=== PATIENT | male | born 1985 | race Caucasian/White ===

== ENCOUNTER → 2022-03-19 12:15 | Outpatient (CLI) | payer OTHER, SELFPAY ==
--- NOTE | 2022-03-19 | DI.RAD.S_ITS ---
PROCEDURE: FL SHOULDER INJECTION MR/CT LT INDICATIONS: PAIN IN LEFT SHOULDER COMPARISON: None. TECHNIQUE: The indications, alternatives, benefits, risks, and complications of the procedure were explained to the patient. Written informed consent was obtained and placed in the chart. The shoulder was examined fluoroscopically and a site for needle placement chosen for entry into the glenohumeral joint from an anterior approach. The skin was prepped and draped in a sterile fashion, and 1% lidocaine infiltrated from skin down to joint capsule. A spinal needle was inserted into the glenohumeral joint, and a small amount of iodinated contrast media injected to confirm intra-articular placement of the needle tip. This was followed by approximately 12 mL dilute solution of a gadolinium containing MR contrast agent. The needle was removed and a dressing was applied. The patient was given postprocedural instructions and sent to the MR suite for MR imaging. FINDINGS: A single fluoroscopic spot image demonstrates intra-articular location of injected iodinated contrast. IMPRESSION: Successful fluoroscopically guided administration of dilute Gadolinium solution into the shoulder joint for MR arthrogram. Dictated by: Isak Mitchell M.D. on 03/19/2022 at 14:44 Approved by: Isak Mitchell M.D. on 03/19/2022 at 14:44
--- NOTE | 2022-03-19 | DI.RAD.S_ITS ---
PROCEDURE: XR EYE FOREIGN BODY RT INDICATIONS: MRI SCREEN TECHNIQUE: A single view of the orbits was acquired. COMPARISON: None. FINDINGS: Soft tissues: There is a metallic foreign body projecting over right orbital roof. No other foreign body is seen. Bones: Bony structures appear unremarkable. Visualized sinuses appear clear. IMPRESSION: Metallic foreign body seen within soft tissue over right orbital roof. Dictated by: Isak Mitchell M.D. on 03/19/2022 at 13:33 Approved by: Isak Mitchell M.D. on 03/19/2022 at 13:50
--- NOTE | 2022-03-19 | DI.CT.S_ITS ---
PROCEDURE: CT UE LT W CON INDICATIONS: LEFT SHOULDER PAIN POST ARTHROGRAM TECHNIQUE: After the intra-articular administration of 12 mL of dilute non-ionic contrast, 1-1.5 mm thick sections acquired from the acromioclavicular joint to the inferior scapula, with coronal and sagittal reformatting. COMPARISON: None. FINDINGS: Image quality: Excellent. Bones: There is mild acromioclavicular joint osteoarthritis with joint space narrowing, subchondral sclerosis and small inferior marginal osteophyte formation depressing the musculotendinous junction of supraspinatus. Mild glenohumeral joint osteoarthritic changes also likely present with joint space narrowing and subchondral sclerosis. No fracture or dislocation. No suspicious bony lesion. Visualized left upper ribs are intact. Soft tissues: There is no full-thickness rotator cuff tendon rupture. No contrast is seen extending to subacromial subdeltoid bursa. No significant muscle atrophy is seen on sagittal images. No abnormal soft tissue calcifications. No gross intra-articular loose bodies. Limited evaluation of shoulder labrum shows no definite area of abnormal contrast extension to suggest focal labral tear. Proximal intra-articular portion of long head of biceps tendon is grossly intact. IMPRESSION: 1. 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 No fracture or dislocation. No suspicious intraosseous lesion. 2. No full-thickness rotator cuff tendon rupture. Low-grade articular surface partial-thickness tear involving distal supraspinatus near its insertion on the humeral head is suspected. No abnormal soft tissue calcifications. No muscle atrophy. 3. No definite focal labral tear is seen. Dictated by: Isak Mitchell M.D. on 03/19/2022 at 14:29 Approved by: Isak Mitchell M.D. on 03/19/2022 at 14:33
== END ==
PROVIDERS: Referring Provider Student in an Organized Health Care Education/Training Program; Visit Provider Student in an Organized Health Care Education/Training Program
DX: M19.012 Primary osteoarthritis, left shoulder (principal); M25.512 Pain in left shoulder; Z13.5 Encounter for screening for eye and ear disorders; H05.51 Retained (old) foreign body following penetrating wound of right orbit; Z18.10 Retained metal fragments, unspecified
CPT/HCPCS: 23350; 70030; 73201

== ENCOUNTER 2023-02-02 20:00 | Emergency (ER) | payer OTHER, SELFPAY ==
[2023-02-02 20:14] VITALS: BP 139/74; PULSE 83; RESP 16; TEMP 37; O2SAT 98; BMI 32.5
[2023-02-02 21:28] VITALS: BP 131/75; PULSE 71
--- NOTE | 2023-02-02 22:36 | ED.NAVMDI ---
HPI - Nausea/Vomiting/Diarrhea General Chief complaint: Nausea/Vomiting/Diarrhea Stated complaint: nausea,diarrhea/body aches Time Seen by Provider: 02/02/23 22:36 Source: patient Mode of arrival: Ambulatory History of Present Illness HPI Narrative: 38-year-old gentleman with no significant medical history presents with persistent nausea and vomiting. Symptoms started on the with body aches by he was having significant nausea without fevers. No actual emesis. Diarrhea started evening and was significant for 2 days. He is had continued nausea, loss of appetite felt that the body aches were perhaps improving this morning but again is noticing some more achiness. Throughout all of this he has not had dysuria. He is noted that his hemorrhoids have flared up after the diarrhea episode. He is dizzy when he stands up and describes a low-grade headache. His made him come in this evening when he again began having increasing nausea and body aches. Related Data Allergies Allergy/AdvReac Type Severity Reaction Status Date / Time No Known Drug Allergies Allergy Verified 02/02/23 20:18 Review of Systems Review of Systems Narrative: Pertinent positive and negative findings as per HPI Patient History Social History Smoking Status: Never smoker Smoking Status: Never smoker Substance Use Type: does not use Exam Initial Vital Signs Initial Vital Signs: Vital Signs Temperature 98.6 F 02/02/23 20:14 Pulse Rate 83 02/02/23 20:14 Respiratory Rate 16 02/02/23 20:14 Blood Pressure 139/74 02/02/23 20:14 Pulse Oximetry 98 02/02/23 20:14 Oxygen Delivery Method Room Air 02/02/23 20:14 General: Appear somewhat fatigued but in no acute distress. Able to give a complete and coherent history. Well-nourished well-developed HEENT: Moist mucous membranes, minimally injected sclera with reactive pupils, Neck: No cervical adenopathy, supple Respiratory: Lungs are clear to auscultation, no wheezing no rales no rhonchi. Full and symmetrical air movement Cardiac: Regular rate and rhythm no murmurs no bruits Abdomen: Soft, nontender, good bowel tones, no flank pain Skin: Warm and dry, no rashes Neurologic: Grossly neurologically intact with no obvious asymmetries or abnormalities Extremities: No trauma, well perfused Psych: Cooperative, appropriate insight and affect Course Orders Ordered: ED Orders 02/02/23 22:57 Complete Blood Count AUTO DIFF Stat Comprehensive Metabolic Panel Stat Magnesium Stat Discontinued Medications Sodium Chloride (Normal Saline 0.9%) 1,000 mls @ 1,000 mls/hr IV BOLUS ONE Stop: 02/02/23 23:44 Last Infusion: 02/02/23 23:42 Dose: 0 mls/hr Documented By: Admin: 02/02/23 22:54 Dose: 1,000 mls/hr Documented By: Ketorolac Tromethamine (Ketorolac 30 Mg/Ml Vial) 15 mg IV NOW ONE Stop: 02/02/23 22:46 Last Admin: 02/02/23 22:54 Dose: 15 mg Documented By: Ondansetron HCl (Ondansetron 4 Mg/2 Ml Inj) 4 mg IV NOW ONE Stop: 02/02/23 22:46 Last Admin: 02/02/23 22:55 Dose: 4 mg Documented By: Vital Signs Vital signs: Vital Signs - 8 hr 02/02/23 20:14 02/02/23 21:28 02/02/23 22:57 Temperature 98.6 F Pulse Rate 83 71 68 Respiratory Rate 16 Blood Pressure 139/74 131/75 Pulse Oximetry 98 97 Oxygen Delivery Method Room Air 02/02/23 22:58 02/02/23 22:58 02/02/23 23:00 Temperature Pulse Rate 65 Respiratory Rate Blood Pressure 124/80 119/76 Pulse Oximetry 96 Oxygen Delivery Method 02/02/23 23:00 02/02/23 23:30 02/02/23 23:30 Temperature Pulse Rate 64 64 Respiratory Rate Blood Pressure 127/65 Pulse Oximetry 96 96 Oxygen Delivery Method MDM - Nausea/Vomiting/Diarrhea Lab Data 02/02/23 22:57 02/02/23 22:57 Labs: Lab Results 02/02/23 02/02/23 Range/Units 22:57 22:57 WBC 5.9 (4.5-11.0) X10^3/uL RBC 5.04 (4.5-5.9) X10^6/uL Hgb 14.8 (13.5-17.5) g/dL Hct 43.9 (41-53) % MCV 87.1 (80-100) fL MCH 29.3 (26-34) PG MCHC 33.7 (30-36) % RDW 13.8 (11.6-14.8) % Plt Count 193 (150-400) X10^3/uL Neut % (Auto) 46.4 L (50-75) % Lymph % (Auto) 31.3 (25-40) % Richardson % (Auto) 17.6 H (3-14) % Eos % (Auto) 4.1 H (2-4) % Baso % (Auto) 0.6 (0-2) % Neut # (Auto) 2800 (1177-4451) /uL Lymph # (Auto) 1900 (9801-2497) /uL Richardson # (Auto) 1000 H (0-900) /uL Eos # (Auto) 200 (0-450) /uL Baso # (Auto) 0 (0-100) /uL Sodium 134 L (137-145) mmol/L Potassium 4.0 (3.4-5.1) mmol/L Chloride 101 (98-107) mmol/L Carbon Dioxide 26 (22-32) mmol/L BUN 8 L (9-20) mg/dL Creatinine 0.83 (0.66-1.25) mg/dL Estimated GFR > 60 (>60) mL/min BUN/Creatinine Ratio 9.6 (6-22) Glucose 97 (70-100) mg/dL Calcium 8.5 (8.4-10.2) mg/dL Magnesium 2.1 (1.6-2.3) mg/dL Total Bilirubin 0.4 (0.2-1.3) mg/dL AST 63 H (17-59) IU/L ALT 101 H (<50) IU/L Alkaline Phosphatase 80 (38-126) U/L Total Protein 6.5 (6.3-8.2) g/dL Albumin 3.7 (3.5-5.0) g/dL Globulin 2.8 (1.7-4.1) g/dL Albumin/Globulin Ratio 1.3 (1.0-2.8) MDM Narrative Medical decision making narrative: CC: Persistent body aches, nausea and diarrhea Data collected from: patient, Differential considered: Gastroenteritis, other viral syndrome, acute renal or electrolyte abnormalities after the diarrhea Exam documented above, pertinent findings include: Appears to feel mildly unwell but no acute abnormalities on physical exam Lab Test results independently reviewed as above. Pertinent findings: CBC is unremarkable Chemistries are essentially reassuring with minimal elevation of AST and ALT Treatments: IV fluids and Zofran, parenteral Toradol Discussion: On re-evaluation, patient is feeling significantly better with parenteral rehydration and medications. Normal labs are reviewed with him. I suspect that this is and was resolving viral gastroenteritis. There is no evidence for acute appendicitis bowel obstruction acute renal failure acute electrolyte abnormalities or alternate reasons that would require surgical consultation additional imaging or hospitalization. All findings reviewed with patient and he will be discharged home. Will send him home with some Zofran should he have any recurrent nausea. Discharge Plan Departure Patient Disposition: Home Clinical Impression: Gastroenteritis, Dehydration, Vomiting and diarrhea Instructions: DI for Viral Gastroenteritis -- Adult Activity Restrictions/Additional Instructions: Thank you for coming in Your lab work was quite reassuring. There is no evidence of overwhelming infection, kidney failure, liver failure or significant electrolyte abnormalities. You certainly seem to look better after receiving a L of IV fluid, IV Toradol and IV Zofran to help with the nausea. I am going to send you home with a couple tablets of Zofran if the nausea should recur. If you find that you are getting worse or develop any new symptoms, please feel free to return to the emergency department for further evaluation. Stand Alone Forms: Patient Portal/API
[2023-02-02] MEDS: SODIUM CHLORIDE 0.9% 1,000 ML 1000 ML IV (22:54)
[2023-02-02] MEDS: KETOROLAC 30 MG/ML VIAL 15 MG IV (22:54)
[2023-02-02] MEDS: ONDANSETRON 4 MG/2 ML INJ IV (22:55)
[2023-02-02 22:57] VITALS: PULSE 68; O2SAT 97
[2023-02-02 22:58] VITALS: BP 124/80; PULSE 65; O2SAT 96
[2023-02-02 23:00] VITALS: BP 119/76; PULSE 64; O2SAT 96
[2023-02-02 23:05] LABS: Add Manual Diff / Slide Review NO; Basophils Absolute Auto 0 /uL (0-100); Basophils Percent Auto 0.6 % (0-2); Eosinophils Absolute Auto 200 /uL (0-450); Eosinophils Percent Auto 4.1 % (2-4); Hematocrit 43.9 % (41-53); Hemoglobin 14.8 g/dL (13.5-17.5); Lymphocytes Absolute Auto 1900 /uL (1100-4500); Lymphocytes Percent Auto 31.3 % (25-40); Mean Corpuscular HGB Conc 33.7 % (30-36); Mean Corpuscular Hemoglobin 29.3 PG (26-34); Mean Corpuscular Volume 87.1 fL (80-100); Monocytes Absolute Auto 1000 /uL (0-900); Monocytes Percent Auto 17.6 % (3-14); Neutrophils Absolute Auto 2800 /uL (1500-7000); Neutrophils Percent Auto 46.4 % (50-75); Platelet Count 193 X10^3/uL (150-400); Red Blood Cell Count 5.04 X10^6/uL (4.5-5.9); Red Cell Distribution Width 13.8 % (11.6-14.8); White Blood Cell Count 5.9 X10^3/uL (4.5-11.0)
[2023-02-02 23:17] LABS: Alanine Aminotransferase 101 IU/L (<50); Albumin 3.7 g/dL (3.5-5.0); Albumin Globulin Ratio 1.3 (1.0-2.8); Alkaline Phosphatase 80 U/L (38-126); Aspartate Aminotransferase 63 IU/L (17-59); BUN Creatinine Ratio 9.6 (6-22); Bilirubin Total 0.4 mg/dL (0.2-1.3); Blood Urea Nitrogen 8 mg/dL (9-20); Calcium 8.5 mg/dL (8.4-10.2); Carbon Dioxide 26 mmol/L (22-32); Chloride 101 mmol/L (98-107); Estimated Glomerular Filt Rate > 60 mL/min (>60); Globulin 2.8 g/dL (1.7-4.1); Glucose 97 mg/dL (70-100); HEMOLYSIS 17 (0-50); Magnesium 2.1 mg/dL (1.6-2.3); Sodium 134 mmol/L (137-145); Total Protein 6.5 g/dL (6.3-8.2)
[2023-02-02 23:30] VITALS: BP 127/65; PULSE 64; O2SAT 96
[2023-02-03] VITALS: BP 127/75; PULSE 69; O2SAT 96
[2023-02-03 00:30] VITALS: BP 121/63; PULSE 69; O2SAT 96
[2023-02-03] MEDS: ONDANSETRON 4 MG ODT PREPACK 1 BOTTLE MISC (01:01)
== END 2023-02-03 01:02 | disposition home or self-care (01) ==
PROVIDERS: Emergency Provider Emergency Medicine
DX: K52.9 Noninfective gastroenteritis and colitis, unspecified (principal); E86.0 Dehydration; R11.2 Nausea with vomiting, unspecified
CPT/HCPCS: 36415; 80053; 83735; 85025; 96361; 96374; 96375; 99284; J1885; J2405

== ENCOUNTER 2024-07-04 16:29 | Emergency (ER) | payer OTHER, SELFPAY ==
[2024-07-04 16:42] VITALS: BP 157/88; PULSE 78; RESP 18; TEMP 36.7; O2SAT 98; BMI 33.2
--- NOTE | 2024-07-04 16:46 | DI.RAD.S_ITS ---
PROCEDURE: XR CHEST 2V INDICATIONS: suspected PNA TECHNIQUE: 2 views of the chest were acquired. COMPARISON: None. FINDINGS: Surgical changes and devices: None. Lungs and pleura: An incomplete inspiratory result is noted, causing a crowded appearance to the lung markings. No focal infiltrates are seen. No pneumothorax or significant pleural effusions are seen. Mediastinum: Mediastinal contours are normal. Heart size is normal. Bones and chest wall: No suspicious bony abnormalities. Soft tissues appear unremarkable. IMPRESSION: Low lung volumes, without an acute abnormality seen by plain film. No focal infiltrates are seen. Dictated by: Anderson Jc M.D. on 07/04/2024 at 16:19 Approved by: Anderson Jc M.D. on 07/04/2024 at 16:20
[2024-07-04 17:29] LABS: COVID-19 CEPHEID 4-PLEX PCR Negative (Negative); Influenza A - CEPHEID Flu A POSITIVE (NEGATIVE); Influenza B - CEPHEID Flu B NEGATIVE (NEGATIVE); Respiratory Syncytial Virus Negative (Negative)
[2024-07-04 21:30] VITALS: O2SAT 98
[2024-07-04 21:31] VITALS: BP 164/83; PULSE 77; O2SAT 98
--- NOTE | 2024-07-04 21:59 | ED.GENADULT ---
HPI - General Adult General Chief complaint: Shortness of Breath/Dyspnea Stated complaint: thinks he has pneumonia Time Seen by Provider: 07/04/24 21:46 Source: patient Mode of arrival: Ambulatory History of Present Illness HPI narrative: 39-year-old male with 2-1/2 days of dry cough, muscle aches, no chronic lung disease, no history of asthma. No recent antibiotics. No known exposure close contacts to anyone known to have recent diagnosis COVID or influenza. Denies nausea or vomiting. Denies diarrhea. Denies pain chest abdomen and pelvis. Concerned that he might have pneumonia. Related Data Previous Rx's Medication Instructions Recorded benzonatate 200 mg capsule 200 mg PO BID-TID PRN cough #20 07/04/24 caps oseltamivir 75 mg capsule (Tamiflu) 75 mg PO BID 5 days #10 caps 07/04/24 Allergies Allergy/AdvReac Type Severity Reaction Status Date / Time No Known Drug Allergies Allergy Verified 02/02/23 20:18 Patient History Social History Smoking Status: Never smoker Smoking Status: Never smoker Exam Narrative Exam Narrative: GENERAL: Well-developed patient, in mild distress. HEAD: Atraumatic. Normocephalic. EYES: Pupils equal round and reactive. Extraocular motions intact. No scleral icterus. No injection or drainage. ENT: Nose without bleeding, purulent drainage. Throat without erythema, tonsillar hypertrophy or exudate. Airway patent. NECK: Trachea midline. Non tender CARDIOVASCULAR: Regular rate and rhythm without murmurs, gallops, or rubs. RESPIRATORY: Clear to auscultation. Breath sounds equal bilaterally. No wheezes, rales, or rhonchi. GASTROINTESTINAL: Abdomen soft, non-tender, nondistended. EXTREMITIES: No edema or joint tenderness. BACK: Nontender without deformity or crepitance. No flank tenderness. NEURO: AOx3. Motor functions grossly nonfocal SKIN: No rash or erythema of visible areas Initial Vital Signs Initial Vital Signs: Vital Signs Temperature 98.0 F 07/04/24 16:42 Pulse Rate 78 07/04/24 16:42 Respiratory Rate 18 07/04/24 16:42 Blood Pressure 157/88 H 07/04/24 16:42 Pulse Oximetry 98 07/04/24 16:42 Oxygen Delivery Method Room Air 07/04/24 16:42 Course Orders Ordered: Discontinued Medications Acetaminophen (Acetaminophen 325 Mg Tablet) 975 mg PO NOW ONE Stop: 07/04/24 22:12 Last Admin: 07/04/24 22:22 Dose: 975 mg Documented By: Oseltamivir Phosphate (Oseltamivir 75 Mg Capsule) 75 mg PO NOW ONE Stop: 07/04/24 22:12 Last Admin: 07/04/24 22:21 Dose: 75 mg Documented By: Vital Signs Vital signs: Vital Signs - 8 hr 07/04/24 16:42 07/04/24 21:30 07/04/24 21:31 Temperature 98.0 F Pulse Rate 78 Respiratory Rate 18 Blood Pressure 157/88 H 164/83 H Pulse Oximetry 98 98 Oxygen Delivery Method Room Air 07/04/24 21:31 Temperature Pulse Rate 77 Respiratory Rate Blood Pressure Pulse Oximetry 98 Oxygen Delivery Method Room Air Medical Decision Making Lab Data Lab results reviewed: Yes I reviewed the patient's lab results. Lab results narrative: Swab for COVID negative, flu B negative, RSV negative, positive for flu A Labs: Lab Results 07/04/24 Range/Units 16:45 SARS-CoV-2 (PCR) Negative (Negative) Influenza A (RT-PCR) Flu a positive H (NEGATIVE) Influenza B (RT-PCR) Flu b negative (NEGATIVE) RSV (PCR) Negative (Negative) Imaging Data Chest x-ray: Radiologist's Impression: [address] [address] XRay Report Signed Patient: Ayad Parra MR#: [id number] : 1985 Acct:[id number] Age/Sex: 39 / M Date of Service: 07/04/24 Loc: ED Accession Number: [id number] Procedure: XR chest 2V Ordering Provider: Bhavana Kirkland D.O. PROCEDURE: XR CHEST 2V INDICATIONS: suspected PNA TECHNIQUE: 2 views of the chest were acquired. COMPARISON: None. FINDINGS: Surgical changes and devices: None. Lungs and pleura: An incomplete inspiratory result is noted, causing a crowded appearance to the lung markings. No focal infiltrates are seen. No pneumothorax or significant pleural effusions are seen. Mediastinum: Mediastinal contours are normal. Heart size is normal. Bones and chest wall: No suspicious bony abnormalities. Soft tissues appear unremarkable. IMPRESSION: Low lung volumes, without an acute abnormality seen by plain film. No focal infiltrates are seen. Dictated by: Anderson Jc M.D. on 07/04/2024 at 16:19 Approved by: Anderson Jc M.D. on 07/04/2024 at 16:20 [facility] Narrative Medical decision making narrative: 39-year-old male with 2-1/2 days of cough, influenza like symptoms, concerned that he might have pneumonia, normal oxygenation, lungs clear without wheeze or crackles. Afebrile, sirs screen negative. Chest x-ray from triage negative for infiltrate, see radiology report. Respiratory swab positive for influenza A, otherwise negative for COVID, RSV, influenza B. We discussed oral antiviral Tamiflu, he would like to try this, 1st dose now, prescription sent to his pharmacy. Advised Tylenol and or Motrin for pain or fever control. Encouraged hydration. Take antivirals as directed. No antibacterials indicated at this time. Return warnings. Discharged home. Discharge Plan Departure Patient Disposition: Home Clinical Impression: Influenza A Activity Restrictions/Additional Instructions: Recent 2-1/2 days cough sometimes productive, muscle aches. Normal oxygenation, reassuring lung exam tonight. Chest x-ray without obvious lobar infiltrates not suggestive of lobar pneumonia at this time. Swab was positive for influenza type A tonight, negative for COVID and flu B and RSV. We discussed antiviral Tamiflu, you would like to try this medication, 1st dose in the emergency department, Tamiflu course prescripton sent to your pharmacy. You also requested Tessalon Perles for control of cough symptoms, prescription sent to your pharmacy. Encouraged to drink plenty of fluids. Take Tylenol as needed for fever. Recheck if not improving in the next 2-3 days. Return to this/nearest emergency department for any change worsening symptoms or any concerns prior. Thank you for letting our team evaluate you today. Prescriptions: New oseltamivir [Tamiflu] 75 mg capsule 75 mg PO BID 5 Days Qty: 10 0RF benzonatate 200 mg capsule 200 mg PO BID-TID PRN (Reason: cough) Qty: 20 0RF Referrals: ProviderHenok [Primary Care Provider] - Stand Alone Forms: Patient Portal/API/Survey
[2024-07-04 22:00] VITALS: PULSE 75; O2SAT 96
[2024-07-04] MEDS: OSELTAMIVIR 75 MG CAPSULE PO (22:21)
[2024-07-04] MEDS: ACETAMINOPHEN 325 MG TABLET 975 MG PO (22:22)
[2024-07-04 22:23] VITALS: BP 141/81; O2SAT 94
== END 2024-07-04 22:27 | disposition home or self-care (01) ==
PROVIDERS: Emergency Medicine; Emergency Provider Emergency Medicine
DX: J10.1 Influenza due to other identified influenza virus with other respiratory manifestations (principal)
CPT/HCPCS: 0241U; 71046; 99283

== ENCOUNTER → 2025-03-31 16:37 | Outpatient (CLI) | payer OTHER, SELFPAY ==
--- NOTE | 2025-03-31 16:39 | DI.MRI.S_ITS ---
PROCEDURE: MR KNEE LT WO CON INDICATIONS: PAIN IN KNEE TECHNIQUE: Noncontrast sagittal PD fast spin echo and T2 fast spin echo with fat saturation, sagittal 3-D FLASH with fat saturation; coronal T1 spin echo and PD fast spin echo with fat saturation, and axial PD fast spin echo with fat saturation through the knee. COMPARISON: None. FINDINGS: Image quality: Excellent. Menisci: Increased intrasubstance signal in the medial meniscus posterior horn and body without discrete tear. The lateral meniscus is intact. The medial and lateral menisci demonstrate normal morphology and internal signal. The meniscal root ligaments appear intact. Cruciate ligaments: The anterior and posterior cruciate ligaments appear intact. Medial structures: Mild edema signal surrounding the medial collateral ligament suggestive of low grade sprain. The semimembranosus tendon insertions and meniscocapsular junction appear intact. Visualized portions of the pes anserinus tendons appear normal. Lateral structures: The lateral collateral ligament, long and short heads of the biceps femoris tendon appear intact. The popliteus tendon appears normal. Iliotibial band appears normal. Anterior structures: Mild distal quadriceps tendinopathy. The patellar tilt appears intact. Mild lateral patellar tilt and translation. Mild superolateral infrapatellar fat pad edema. Bones and cartilage: No bone marrow contusions or fractures. The cartilage of the medial and lateral femorotibial compartments appear normal in thickness. Mild patellar chondral heterogeneity and fraying. Joint space: There is physiologic knee joint fluid. Small Marquez's cyst. Normal appearing synovial plicae are incidentally noted. IMPRESSION: Low grade sprain of the medial collateral ligament. Mild patellofemoral chondrosis. Mild lateral tilt and translation of the patella with mild superolateral infrapatellar fat pad edema, which may suggest patellar maltracking. Mild distal quadriceps tendinopathy. Small Marquez's cyst. Dictated by: Shanice Jackson M.D. on 04/02/2025 at 23:46 Approved by: Shanice Jackson M.D. on 04/03/2025 at 0:11
== END ==
PROVIDERS: Referring Provider Student in an Organized Health Care Education/Training Program; Visit Provider Student in an Organized Health Care Education/Training Program
DX: S83.412A Sprain of medial collateral ligament of left knee, initial encounter (principal); M22.42 Chondromalacia patellae, left knee; M71.22 Synovial cyst of popliteal space [Baker], left knee; M25.562 Pain in left knee
CPT/HCPCS: 73721